=== PATIENT | female | born 1945 | race Caucasian/White ===

== ENCOUNTER 2024-01-18 12:58 | Outpatient (AMB) | payer MEDICARE, BC, SELFPAY ==
--- NOTE | 2024-01-18 13:00 | MHC.OFFWIV ---
Intake Vital Signs 01/18/24 13:05 Height 5 ft 4 in Weight 171 lb BMI 29.3 BP 154/90 H Blood Pressure Location Lt brachial Position Sitting Pulse 87 Pulse Source Pulse Oximeter Temp 97.7 F Temp Source Temporal Artery Scan Pulse Oximetry (%) 95 Oxygen Delivery Method Room Air Intake Visit Reasons: [employer] LT ear ache Intake Note: pt is here today for lft ear ach started 5 days ago Patient Tobacco Use Status: Never used Tobacco Allergies No Known Allergies Allergy (Verified 01/18/24 13:01) Do you need a note to return to daycare/school/sports/work: No HPI [employer] LT ear ache HPI Details This is a 78 year old female patient who presents to the [place] clinic today for a 5 day history of left ear pressure/fullness and mild pain. Denies any URI symptoms or recent illness. Denies fever. [facility] Social History Patient Tobacco Use Status: Never used Tobacco Review of Systems Const All systems reviewed & are unremarkable except as noted in HPI and below Physical Exam Vital Signs: Last Vital Signs Temp 97.7 F 01/18/24 13:05 Pulse 87 01/18/24 13:05 BP 154/90 H 01/18/24 13:05 Pulse Ox 95 01/18/24 13:05 Oxygen Delivery Method Room Air 01/18/24 13:05 BMI result Body Mass Index 29.3 Const General: cooperative, healthy appearing and no acute distress HEENT Head: Yes normal to inspection Ears: hearing grossly normal bilaterally, external ears normal, TM normal on the right and TM abnormal (left TM erythematous, bulging) Mouth: Normal oral and palatal mucosa present Throat: Yes posterior oropharynx normal Neck Neck: Yes no lymphadenopathy Resp Effort & Inspection: normal respiratory effort Auscultation: clear to auscultation bilaterally Cardio Rate: regular rate Rhythm: regular rhythm Skin General skin exam: no rashes or lesions noted Extrem General: Yes capillary refill normal and Yes no clubbing, cyanosis or edema Psych Appearance: grossly normal Mental Status: mental status grossly normal Speech and movement: Normal speech and movement present Assessment & Plan Assessment & Plan (1) Left acute otitis media: Code(s): H66.92 - Otitis media, unspecified, left ear Plan: Augmentin BID 7 days for left OM. Reviewed indications, use possible s/e of medication. Can also continue to take Tylenol and decongestant as needed. May return to the clinic as needed if she does not improve with treatment. She agrees to plan. Medications: New amoxicillin-pot clavulanate 875-125 mg 1 tab PO BID 14 tabs 0RF 7 days H66.92 - Otitis media, unspecified, left ear Coding Level of Care Code Est Pt Level 3 (21219) Diagnoses Left acute otitis media H66.92
[2024-01-18 13:05] VITALS: BP 154/90; PULSE 87; TEMP 36.5; O2SAT 95; BMI 29.3
== END 2024-01-18 13:20 | disposition home or self-care (01) ==
PROVIDERS: PCP Internal Medicine Endocrinology, Diabetes & Metabolism; Visit Provider Nurse Practitioner Family
DX: H66.92 Otitis media, unspecified, left ear (principal)
CPT/HCPCS: 99213